=== PATIENT | female | born 1970 | race Caucasian/White ===

== ENCOUNTER 2020-08-01 09:40 | Emergency (ER) | payer BC, OTHER ==
[2020-08-01] MEDS ORDERED: METOCLOPRAMIDE HCL INJECTION 10 MG/2 ML VIAL IVPB ONE (09:52)
[2020-08-01] MEDS ORDERED: SODIUM CHLORIDE 0.9% 1000 ML INFUS.BAG IV ONE (09:52)
[2020-08-01] MEDS ORDERED: ACETAMINOPHEN 1000 MG/100 ML VIAL (NON FORMULARY) IVPB ONE (09:52)
[2020-08-01 09:54] VITALS: TEMP 99; BMI 42.7
[2020-08-01] MEDS ORDERED: METOCLOPRAMIDE HCL INJECTION 10 MG/2 ML VIAL ONE (10:12)
[2020-08-01] MEDS ORDERED: ACETAMINOPHEN INJECTION 100 ML IVPB ONE (10:12)
[2020-08-01 10:46] LABS: BASO % 2.3 % (0-2.0); EOS % 1.5 % (0-4.5); HEMATOCRIT 45.1 % (32.4-45.2); HEMOGLOBIN 14.1 GM/dl (10.7-15.3); LYMPH % 26.5 % (8-40); MCH 24.6 pg (25.7-33.7); MCHC 31.4 g/dl (32.0-36.0); MEAN CELL VOLUME 78.3 fl (80-96); MEAN PLT VOLUME 9.9 fl (7.5-11.1); MONO % 4.5 % (3.8-10.2); NEUT % 65.2 % (42.8-82.8); PLATELET COUNT 272 K/MM3 (134-434); RBC 5.75 M/mm3 (3.60-5.2); RDW 14.8 % (11.6-15.6)
[2020-08-01 10:55] LABS: ALBUMIN 3.9 g/dl (3.4-5.0); BILIRUBIN,TOTAL 0.6 mg/dl (0.2-1); CALCIUM 9.3 mg/dl (8.5-10); CREATININE 0.6 mg/dl (0.55-1.3); POTASSIUM 3.5 mmol/L (3.5-5.1); TOT PROT 8.2 g/dl (6.4-8.2)
[2020-08-01 11:10] LABS: ACTIVATED PTT 28.6 SECONDS (25.2-36.5)
[2020-08-01 11:14] LABS: INR 1.15 (0.82-1.09); PROTHROMBIN TIME (PATIENT) 12.8 SEC (10.2-13.0)
[2020-08-01 11:52] VITALS: BP 147/89; PULSE 80
== END 2020-08-01 13:36 | disposition home or self-care (01) ==
LOC: FER 09:40
PROC: 3E0333Z Introduction of Anti-inflammatory into Peripheral Vein, Percutaneous Approach (ICD-10-PCS; principal; 2020-08-01)
PROC: 3E033GC Introduction of Other Therapeutic Substance into Peripheral Vein, Percutaneous Approach (ICD-10-PCS; 2020-08-01)
PROC: 3E033GC Introduction of Other Therapeutic Substance into Peripheral Vein, Percutaneous Approach (ICD-10-PCS; 2020-08-01)
DX: G51.0 Bell's palsy (principal)
CPT/HCPCS: 36415; 70450-TC; 80053; 82550; 82962; 83036; 84484; 85025; 85610; 85651; 85730; 86140; 86618; 93005; 99285-25; J0131

== ENCOUNTER 2024-02-05 14:40 | Emergency (ER) | payer BC ==
[2024-02-05 14:47] VITALS: RESP 18; BMI 41.9
[2024-02-05] MEDS ORDERED: METOCLOPRAMIDE HCL INJECTION 10 MG/2 ML VIAL ONE (16:27)
[2024-02-05] MEDS ORDERED: LIDOCAINE 4% PATCH TP ONE (16:27)
[2024-02-05 16:28] LABS: BASO % 0.7 % (0-2.0); HEMATOCRIT 40.5 % (32.4-45.2); HEMOGLOBIN 13.1 GM/dL (10.7-15.3); LYMPH % 23.6 % (8-40); MCHC 32.4 g/dl (32.0-36.0); MEAN CELL VOLUME 77.1 fl (80-96); MEAN PLT VOLUME 8.8 fl (7.5-11.1); MONO % 4.5 % (3.8-10.2); NEUT % 70.2 % (42.8-82.8); PLATELET COUNT 256 10^3/uL (134-434); RBC 5.25 M/mm3 (3.60-5.2); RDW 15.7 % (11.6-15.6); WHITE BLOOD COUNT 13.7 K/mm3 (4.0-10.0)
[2024-02-05] MEDS: LIDOCAINE 4% PATCH TP ONE (16:41)
[2024-02-05] MEDS: METOCLOPRAMIDE HCL INJECTION 10 MG/2 ML VIAL IVPUSH ONE (16:41)
[2024-02-05] MEDS: SODIUM CHLORIDE 1,000 ML IV STA (16:42)
[2024-02-05 16:57] LABS: POTASSIUM 3.7 mmol/L (3.5-5.1)
[2024-02-05 16:58] LABS: CALCIUM 9.1 mg/dL (8.5-10.1)
[2024-02-05 16:59] LABS: ALBUMIN 3.4 g/dl (3.4-5.0); BLOOD UREA NITROGEN 17.5 mg/dL (7-18)
[2024-02-05 17:04] LABS: BILIRUBIN,TOTAL 0.3 mg/dL (0.2-1); CREATININE 0.7 mg/dL (0.55-1.3); TOT PROT 7.7 g/dl (6.4-8.2)
[2024-02-05 17:25] LABS: MAGNESIUM 2.1 mg/dL (1.8-2.4)
[2024-02-05 18:36] VITALS: BP 153/84; PULSE 65
[2024-02-05 18:37] VITALS: TEMP 98.1
[2024-02-05] MEDS ORDERED: LIDOCAINE PATCH REMOVAL MC SCH (22:00)
== END 2024-02-05 18:35 | disposition home or self-care (01) ==
LOC: JER 14:40
PROC: 3E033GC Introduction of Other Therapeutic Substance into Peripheral Vein, Percutaneous Approach (ICD-10-PCS; principal; 2024-02-05)
PROC: 3E0337Z Introduction of Electrolytic and Water Balance Substance into Peripheral Vein, Percutaneous Approach (ICD-10-PCS; 2024-02-05)
DX: M54.2 Cervicalgia (principal); R51.9 Headache, unspecified; M79.2 Neuralgia and neuritis, unspecified; R42 Dizziness and giddiness; R20.2 Paresthesia of skin
CPT/HCPCS: 36415; 70498-TC; 80053; 83735; 84484; 85025; 93005; 93010; 99285-25